=== PATIENT | female | born 1990 | race African-American/Black ===

== ENCOUNTER 2018-06-29 20:39 | Emergency (ER) | payer BC ==
[~2018-06-29] VITALS: Ht 170.2 cm; Wt 72.6 kg
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
[2018-06-29 20:55] VITALS: BP 136/84
[2018-06-29] MEDS ORDERED: HYDROCODON-ACE1 EA15 ORAL (21:13)
[2018-06-29] MEDS ORDERED: IBUPROFEN600 MG ORAL (21:13)
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
[2018-06-29 21:52] VITALS: BP 133/81
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
--- NOTE | 2018-06-30 00:15 | NUR ---
ER DISCHARGE NOTE: Patient is cleared to be discharged per Dr. Patiño. X-ray done, no fracture was found at this time. Meds given as ordered. Pt is A/O x4 on room air with stable vital signs. Pt was given D/C and prescription instructions and pt was able to verbalize understanding. Pt's ID band removed. Pt is able to ambulate with steady gait and took all belongings.
== END 2018-06-29 21:52 | disposition home or self-care (01) ==
LOC: EMR 21:50
DX: S16.1XXA Strain of muscle, fascia and tendon at neck level, initial encounter (principal); R51 Headache; Z91.013 Allergy to seafood; V43.52XA Car driver injured in collision with other type car in traffic accident, initial encounter; Y92.410 Unspecified street and highway as the place of occurrence of the external cause; M25.512 Pain in left shoulder
CPT/HCPCS: 72040; 99283